=== PATIENT | female | born 1995 | race Caucasian/White ===

== ENCOUNTER → 2018-06-01 | Outpatient (CLI) | payer OTHER ==
[~2018-06-01] MED LIST: ANAPROX DS550 MG PO; AUGMENTIN 875 M1 TAB PO; BIRTH CONTROL1 EAC1 PO; CIPRO250 MG PO; KEFLEX500 MG PO; MOTRIN400 MG PO; MOTRIN800 MG PO; PYRIDIUM200 MG PO; TRAMADOL HCL50 MG PO; TRIMOX500 MG PO; ZITHROMAX Z PA250 MG PO
== END | disposition home or self-care (01) ==
LOC: LAB 00:01
DX: N91.2 Amenorrhea, unspecified (principal)

== ENCOUNTER → 2019-08-19 | Outpatient (CLI) | payer OTHER | END | disposition home or self-care (01) | LOC: RAD 18:50 | DX: R05 Cough (principal); R06.02 Shortness of breath ==

== ENCOUNTER → 2020-01-03 | Outpatient (CLI) | payer OTHER | END | disposition home or self-care (01) | LOC: RAD 15:06 | DX: M25.542 Pain in joints of left hand (principal) ==

== ENCOUNTER → 2020-02-20 | Outpatient (CLI) | payer OTHER | END | disposition home or self-care (01) | LOC: US 02-19 11:00 | PROVIDERS: ATTEND Nurse Practitioner Women's Health | DX: Z34.81 Encounter for supervision of other normal pregnancy, first trimester (principal); Z3A.10 10 weeks gestation of pregnancy ==

== ENCOUNTER → 2020-05-01 | Outpatient (CLI) | payer OTHER | END | disposition home or self-care (01) | LOC: US 00:38 | PROVIDERS: ATTEND Obstetrics & Gynecology | DX: O32.1XX0 Maternal care for breech presentation, not applicable or unspecified (principal); Z3A.20 20 weeks gestation of pregnancy ==

== ENCOUNTER → 2020-05-18 | Outpatient (CLI) | payer OTHER | END | disposition home or self-care (01) | LOC: US 12:52 | PROVIDERS: ATTEND Obstetrics & Gynecology | DX: O32.1XX0 Maternal care for breech presentation, not applicable or unspecified (principal); Z3A.23 23 weeks gestation of pregnancy ==

== ENCOUNTER → 2020-06-10 | Outpatient (CLI) | payer OTHER | END | disposition home or self-care (01) | LOC: LAB 08:19 | PROVIDERS: ATTEND Nurse Practitioner Women's Health | DX: O99.810 Abnormal glucose complicating pregnancy (principal); Z3A.27 27 weeks gestation of pregnancy ==

== ENCOUNTER → 2020-08-03 | Outpatient (CLI) | payer OTHER | END | disposition home or self-care (01) | LOC: US 11:30 | PROVIDERS: ATTEND Obstetrics & Gynecology | DX: Z34.03 Encounter for supervision of normal first pregnancy, third trimester (principal); Z3A.34 34 weeks gestation of pregnancy ==

== ENCOUNTER → 2020-08-28 | Outpatient (CLI) | payer OTHER | END | disposition home or self-care (01) | LOC: LAB 02:28 | PROVIDERS: ATTEND Nurse Practitioner Women's Health | DX: Z20.822 Contact with and (suspected) exposure to COVID-19 (principal); Z34.03 Encounter for supervision of normal first pregnancy, third trimester; Z3A.36 36 weeks gestation of pregnancy ==

== ENCOUNTER 2021-03-11 11:44 | Emergency (ER) | payer OTHER ==
[~2021-03-11] VITALS: Wt 68.0 kg
[2021-03-11 11:48] VITALS: BP 136/82
[2021-03-11] MEDS ORDERED: IBUPROFEN600 MG PO (12:23)
[2021-03-11] MEDS ORDERED: PENICILLIN VK500 MG PO (12:23)
[2021-03-11] MEDS ORDERED: OXAYDO7.5 MG PO (12:23)
== END 2021-03-11 12:52 | disposition home or self-care (01) ==
LOC: ED 11:44
DX: K08.409 Partial loss of teeth, unspecified cause, unspecified class (principal); Z88.6 Allergy status to analgesic agent; Z79.899 Other long term (current) drug therapy

== ENCOUNTER 2021-04-29 23:37 | Emergency (ER) | payer OTHER ==
[~2021-04-29] VITALS: Ht 170.1 cm; Wt 65.8 kg
[~2021-04-29 23:37] MED LIST changes: +IBUPROFEN600 MG PO; +OXAYDO7.5 MG PO; +PENICILLIN VK500 MG PO
[2021-04-29 23:38] VITALS: BP 134/65
[2021-04-30 00:59] LABS: BASO % 0.2 % (0.0-1.0); EOS # 0.1 10*3/uL (0.0-0.4); EOS % 1.6 % (1.0-4.0); HEMATOCRIT 39.8 % (37.0-47.0); LYMPH # 2.5 10*3/uL (1.3-4.4); LYMPH % 40.1 % (27.0-41.0); MEAN CELL VOLUME 90.5 fl (81.0-99.0); MEAN CORPUSCULAR HGB CONC 33.2 g/dl (33.0-37.0); MEAN PLATELET VOLUME 9.5 fl (9.6-12.3); MONO # 0.5 10*3/uL (0.1-1.0); MONO % 7.3 % (3.0-9.0); NEUT # 3.1 10*3/uL (2.3-7.9); NEUT % 50.3 % (47.0-73.0); PLATELET COUNT AUTOMATED 262 10*3/uL (130-400); RED CELL DISTRI WIDTH 11.3 % (0-14.5); WHITE BLOOD COUNT 6.2 10*3/uL (4.8-10.8)
[2021-04-30 01:15] LABS: ALBUMIN 3.3 gm/dl (3.1-4.5); ALKALINE PHOSPHATASE 44 U/L (45-117); BUN 11 mg/dl (7-24); CHLORIDE 104 mmol/L (98-107); CPK 53 U/L (26-192); CREATININE 0.77 mg/dL (0.55-1.02); POTASSIUM 4.1 mmol/L (3.5-5.1); SGOT/AST 19 IU/L (3-35); SGPT/ALT 23 U/L (12-78); SODIUM 139 mmol/L (136-145); TOTAL PROTEIN 7.4 gm/dL (6.4-8.2)
[2021-04-30] MEDS ORDERED: LEVOFLOXACIN500 MG PO (03:37)
== END 2021-04-30 03:50 | disposition home or self-care (01) ==
LOC: ED 23:37
PROVIDERS: Emergency Medicine
DX: J18.9 Pneumonia, unspecified organism (principal); Z88.6 Allergy status to analgesic agent

== ENCOUNTER → 2022-12-21 | Outpatient (CLI) | payer OTHER ==
[~2022-12-21] MED LIST changes: +LEVOFLOXACIN500 MG PO
[2022-12-21 01:27] LABS: ALKALINE PHOSPHATASE 32 U/L (46-116); BUN 6 mg/dl (9-23); CHLORIDE 101 mmol/L (98-107); CHOLESTEROL 247 mg/dL (<200); LDL CHOLESTEROL 142 mg/dL (9-159); POTASSIUM 3.7 mmol/L (3.4-5.1); SGPT/ALT 11 U/L (10-49); TOTAL PROTEIN 7.8 gm/dL (6.0-8.0); TRIGLYCERIDES 66 mg/dl (<150)
== END | disposition home or self-care (01) ==
LOC: LAB 00:48
PROVIDERS: ATTEND Family Medicine
DX: Z00.00 Encounter for general adult medical examination without abnormal findings (principal); Z13.220 Encounter for screening for lipoid disorders; Z13.6 Encounter for screening for cardiovascular disorders; R53.83 Other fatigue

== ENCOUNTER → 2023-03-20 | Outpatient (CLI) | payer OTHER ==
[2023-03-21 08:09] LABS: THYROID PEROXIDASE (TPO) AB 27 IU/mL (0-34)
[2023-03-21 18:06] LABS: THYROGLOBULIN ANTIBODY <1.0 IU/mL (0.0-0.9)
== END | disposition home or self-care (01) ==
LOC: LAB 14:06
PROVIDERS: ATTEND Family Medicine
DX: E03.9 Hypothyroidism, unspecified (principal)

== ENCOUNTER → 2023-07-28 | Outpatient (CLI) | payer OTHER ==
[2023-07-28 10:22] LABS: BASO % 0.3 % (0.0-1.0); EOS # 0.1 10*3/uL (0.0-0.4); EOS % 0.9 % (1.0-4.0); HEMATOCRIT 39.1 % (37.0-47.0); LYMPH # 3.8 10*3/uL (1.3-4.4); LYMPH % 42.1 % (27.0-41.0); MEAN CELL VOLUME 90.5 fl (81.0-99.0); MEAN CORPUSCULAR HGB 29.9 pg (27.0-31.0); MEAN PLATELET VOLUME 9.1 fl (9.6-12.3); MONO # 0.6 10*3/uL (0.1-1.0); MONO % 7.2 % (3.0-9.0); NEUT # 4.4 10*3/uL (2.3-7.9); NEUT % 49.3 % (47.0-73.0); PLATELET COUNT AUTOMATED 298 10*3/uL (130-400); RED BLOOD COUNT 4.32 10*6/uL (4.10-5.10); RED CELL DISTRI WIDTH 11.5 % (0-14.5)
[2023-07-28 11:17] LABS: ALKALINE PHOSPHATASE 32 U/L (46-116); BUN 7 mg/dl (9-23); CHLORIDE 104 mmol/L (98-107); CHOLESTEROL 245 mg/dL (<200); LDL CHOLESTEROL 141 mg/dL (9-159); POTASSIUM 3.5 mmol/L (3.4-5.1); SGPT/ALT 10 U/L (5-49); TOTAL PROTEIN 7.2 gm/dL (6.0-8.0); TRIGLYCERIDES 123 mg/dl (<150)
[2023-07-28 11:37] LABS: FREE T4 0.89 ng/dl (0.89-1.76)
== END | disposition home or self-care (01) ==
LOC: LAB 10:00
PROVIDERS: ATTEND Nurse Practitioner Family
DX: E03.9 Hypothyroidism, unspecified (principal)

== ENCOUNTER → 2023-08-05 | Outpatient (CLI) | payer OTHER ==
[2023-08-05 08:10] LABS: CHOLESTEROL 305 mg/dL (<200); LDL CHOLESTEROL 196 mg/dL (9-159); TRIGLYCERIDES 86 mg/dl (<150)
[2023-08-06 08:07] LABS: SEX HORMONE BINDING GLOBULIN 96.7 nmol/L (24.6-122.0)
[2023-08-07 21:06] LABS: TESTOSTERONE FREE, (DIRECT) 2.5 pg/mL (0.0-4.2)
== END | disposition home or self-care (01) ==
LOC: LAB 06:27
PROVIDERS: ATTEND Nurse Practitioner Family
DX: R68.82 Decreased libido (principal); E03.9 Hypothyroidism, unspecified; E28.2 Polycystic ovarian syndrome

== ENCOUNTER → 2024-02-19 | Outpatient (CLI) | payer OTHER | END | disposition home or self-care (01) | LOC: RAD 07:13 | PROVIDERS: ATTEND Internal Medicine | DX: S62.616A Displaced fracture of proximal phalanx of right little finger, initial encounter for closed fracture (principal); X58.XXXA Exposure to other specified factors, initial encounter; Y93.89 Activity, other specified; Y92.89 Other specified places as the place of occurrence of the external cause; Y99.8 Other external cause status ==

== ENCOUNTER → 2024-03-18 | Outpatient (CLI) | payer OTHER | END | disposition home or self-care (01) | LOC: RAD 09:48 | PROVIDERS: ATTEND Orthopaedic Surgery | DX: S62.606D Fracture of unspecified phalanx of right little finger, subsequent encounter for fracture with routine healing (principal); X58.XXXD Exposure to other specified factors, subsequent encounter ==

== ENCOUNTER → 2024-04-15 | Outpatient (CLI) | payer OTHER | END | disposition home or self-care (01) | LOC: RAD 10:09 | PROVIDERS: ATTEND Orthopaedic Surgery | DX: S62.616D Displaced fracture of proximal phalanx of right little finger, subsequent encounter for fracture with routine healing (principal); X58.XXXD Exposure to other specified factors, subsequent encounter ==

== ENCOUNTER → 2025-01-08 | Outpatient (CLI) | payer OTHER ==
[2025-01-08 07:35] LABS: BASO # 0.1 10*3/uL (0.0-0.1); BASO % 0.7 % (0.0-1.0); EOS # 0.1 10*3/uL (0.0-0.4); EOS % 1.8 % (1.0-4.0); MEAN CELL VOLUME 93.7 fl (81.0-99.0); MEAN CORPUSCULAR HGB 30.2 pg (27.0-31.0); MEAN PLATELET VOLUME 9.4 fl (9.6-12.3); MONO # 0.6 10*3/uL (0.1-1.0); MONO % 8.6 % (3.0-9.0); NEUT # 2.2 10*3/uL (2.3-7.9); NEUT % 30.9 % (47.0-73.0); NUCLEATED RED BLOOD CELL 0.0 % (0.0-0.0); NUCLEATED RED BLOOD CELL 0.0 10*3/uL (0.0-0.0); PLATELET COUNT AUTOMATED 305 10*3/uL (130-400); RED CELL DISTRI WIDTH 12.2 % (0-14.5)
[2025-01-08 08:11] LABS: BUN 7 mg/dl (9-23); FREE T4 1.10 ng/dl (0.89-1.76); SGPT/ALT 15 U/L (5-49)
[2025-01-08 08:45] LABS: VITAMIN D, 25-HYDROXY 53.8 ng/mL (30-100)
== END | disposition home or self-care (01) ==
LOC: LAB 07:06
PROVIDERS: ATTEND Nurse Practitioner Family
DX: E61.1 Iron deficiency (principal); F90.9 Attention-deficit hyperactivity disorder, unspecified type; F41.8 Other specified anxiety disorders